=== PATIENT | female | born 1970 | race Caucasian/White ===

== ENCOUNTER → 2016-08-23 | Outpatient (CLI) | payer OTHER ==
[~2016-08-23] MED LIST: ALBUAER INH; BCTRO EXT; BUSP15TA70 PO; CIPR-255 PO; CRFUDL PO; FLV1 PO; GABA-113 PO; PANT40TA PO; RXC5 PO; THM100 PO
[2016-08-23 09:35] LABS: BASO % 0.5 %; BASO ABS # 0.04 K/uL (0-0.2); COMPLETE YES; EOS % 3.7 %; HEMATOCRIT 41.2 % (37-47); IG% 0.1 %; LYMPH ABS # 2.12 K/uL (1.2-3.4); MEAN CORPUSCULAR HEMOGLOBIN 31.8 pg (25-34); MEAN CORPUSCULAR HGB CONC 34.2 g/dl (32-36); MONO % 6.3 %; NEUT % 61.4 %; PLATELET COUNT 371 K/uL (130-400); RED BLOOD COUNT 4.43 M/uL (4.2-5.4); WHITE BLOOD COUNT 7.56 K/uL (4.8-10.8)
[2016-08-23 09:47] LABS: BLOOD UREA NITROGEN 10 mg/dl (7-18); CREATININE 0.76 mg/dl (0.60-1.20); GLUCOSE 76 mg/dl (70-99)
[2016-08-23 09:48] LABS: ALT/SGPT 29 U/L (12-78); AST/SGOT 18 U/L (15-37); BUN/CREATININE RATIO 13.7 (10-20); CALCIUM 9.3 mg/dl (8.5-10.1); CARBON DIOXIDE 30 mmol/L (21-32); CHLORIDE 102 mmol/L (98-107); POTASSIUM 4.3 mmol/L (3.5-5.1); SODIUM 139 mmol/L (136-145)
[2016-08-23 09:53] LABS: ALB/GLOB RATIO 1.2 (0.9-2); ALKALINE PHOSPHATASE 48 U/L (45-117); CHOLESTEROL 201 mg/dl (0-200); HDL CHOLESTEROL 99 mg/dl; LDL CHOLESTEROL CALCULATED 92 mg/dl; TRIGLYCERIDES 48 mg/dl (0-150); VERY LOW DENSITY LIPOPROT CALC 10 mg/dl
== END | disposition home or self-care (01) ==
LOC: C.LAB 06:33
PROVIDERS: ATTEND Nurse Practitioner Adult Health
DX: I10 Essential (primary) hypertension (principal)

== ENCOUNTER → 2016-08-26 | Outpatient (CLI) | payer OTHER ==
--- NOTE | 2016-08-26 14:09 | DIAGNOSTIC IMAGING REPORT ---
LEFT WRIST 4 VIEWS CLINICAL HISTORY: Left wrist pain. FINDINGS: 4 views of the left wrist are obtained. No prior studies are available for comparison at the time of dictation. The skeletal structures are well mineralized. No fracture is seen. The joint spaces of the wrist are well-maintained. The overlying soft tissues are within normal limits. IMPRESSION: Unremarkable radiographic assessment of the left wrist. Electronically signed by: Koko Card M.D. 08/26/2016 2:06 PM Dictated Date/Time: 08/26/2016 2:05 PM
--- NOTE | 2016-08-26 14:10 | DIAGNOSTIC IMAGING REPORT ---
LEFT HAND 3 VIEWS CLINICAL HISTORY: Left hand pain. FINDINGS: 3 views of the left hand are obtained. No prior studies are available for comparison at the time of dictation. The skeletal structures are well mineralized. No fracture is seen. The joint spaces of the hand are well-maintained. The overlying soft tissues are within normal limits. IMPRESSION: Unremarkable radiographic assessment of the left hand. Electronically signed by: Koko Card M.D. 08/26/2016 2:08 PM Dictated Date/Time: 08/26/2016 2:07 PM
== END | disposition home or self-care (01) ==
LOC: C.RAD1850 13:42
PROVIDERS: ATTEND Emergency Medicine
DX: M79.602 Pain in left arm (principal)

== ENCOUNTER → 2017-05-19 | Outpatient (CLI) | payer OTHER ==
[~2017-05-19] MED LIST changes: +THIA100T27 PO; -THM100 PO
[2017-05-19 15:27] LABS: BASO % 0.5 %; BASO ABS # 0.05 K/uL (0-0.2); EOS % 2.6 %; EOS ABS # 0.26 K/uL (0-0.5); HEMATOCRIT 39.5 % (37-47); HEMOGLOBIN 13.7 g/dL (12.0-16.0); IG# 0.06 K/uL (0.00-0.02); LYMPH % 26.9 %; MEAN CELL VOLUME 95.4 fL (80-100); MEAN CORPUSCULAR HEMOGLOBIN 33.1 pg (25-34); MEAN CORPUSCULAR HGB CONC 34.7 g/dl (32-36); MEAN PLATELET VOLUME 8.9 fL (7.4-10.4); MONO % 9.1 %; MONO ABS # 0.91 K/uL (0.11-0.59); NEUT % 60.3 %; NEUT ABS # 6.04 K/uL (1.4-6.5); PLATELET COUNT 377 K/uL (130-400); RED CELL DISTRIBUTION WIDTH CV 12.8 % (11.5-14.5); RED CELL DISTRIBUTION WIDTH SD 44.7 fL (36.4-46.3); WHITE BLOOD COUNT 10.02 K/uL (4.8-10.8)
--- NOTE | 2017-05-19 15:30 | DIAGNOSTIC IMAGING REPORT ---
CHEST 2 VIEWS ROUTINE CLINICAL HISTORY: R05 Productive [id number] cough. Dyspnea. COMPARISON STUDY: 10/07/2015 FINDINGS: The bones soft tissues and hemidiaphragms are normal. The cardiomediastinal silhouette is normal. The lungs are clear. The pulmonary vasculature is normal. IMPRESSION: Negative chest. The above report was generated using voice recognition software. It may contain grammatical, syntax or spelling errors. Electronically signed by: Norberto Kohler M.D. 05/19/2017 3:29 PM Dictated Date/Time: 05/19/2017 3:28 PM
[2017-05-19 18:00] LABS: ALBUMIN 3.6 gm/dl (3.4-5.0); ALT/SGPT 32 U/L (12-78); AST/SGOT 21 U/L (15-37); BLOOD UREA NITROGEN 19 mg/dl (7-18); CALCIUM 9.2 mg/dl (8.5-10.1); CARBON DIOXIDE 28 mmol/L (21-32); CREATININE 0.82 mg/dl (0.60-1.20); GLUCOSE 83 mg/dl (70-99); SODIUM 136 mmol/L (136-145)
[2017-05-19 18:03] LABS: ALKALINE PHOSPHATASE 79 U/L (45-117); TOTAL PROTEIN 7.9 gm/dl (6.4-8.2)
== END | disposition home or self-care (01) ==
LOC: C.RAD 14:49
PROVIDERS: ATTEND Nurse Practitioner Adult Health
DX: R05 Cough (principal)

== ENCOUNTER 2023-12-27 11:44 | Inpatient (IN) ==
--- NOTE | 2023-12-27 12:03 | Emergency Department Note ---
Impression & Plan Hypoxia ADMIT ED Provider Note HPI: History obtained from patient. The patient is a 53-year-old female with history of generalized anxiety disorder, COPD, currently smoking approximately 1 pack/day, presents the emergency department with a chief complaint of cough, wheezing, and shortness of breath. Patient states that her symptoms have been worsening over the past several days. Patient denies any chest pain. She states she is coughing up "yellow mucus". On arrival here to the ER the patient is noted to be hypoxic on room air to 87%, she is mildly tachycardic and hypertensive at 177/102. Patient is conversational on arrival however she does exhibit bilateral expiratory wheezing on auscultation. ROS: - Per HPI Differential Diagnosis: COPD exacerbation, pneumonia, viral upper respiratory infection with cough, acute bronchitis, acute coronary syndrome, amongst other potential pathologies. *Outpatient medications and allergy history reviewed. 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 Lab work shows no leukocytosis, hemoglobin is normal, platelet count is normal, D-dimer was obtained that is within normal limits. Venous blood gas shows pH slightly high at 7.49, pCO2 is normal. Lab work shows a sodium of 120, otherwise no critical findings are noted. Viral panel testing is positive for COVID-19. Chest x-ray per my interpretation does not show any evidence of focal pneumonia. Patient was given IV Solu-Medrol as well as multiple DuoNeb breathing treatments in the ER. On my reassessment she remains with wheezing and borderline oxygen saturations on 5 L nasal cannula. She is conversational at this point and otherwise does not appear to be in acute distress. Patient is in agreement for admission. I discussed her presentation with the on-call hospitalist, Dr. Hodgson, and the patient was placed for admission in stable condition. Consultants/Discussions held with other healthcare providers: -Hospitalist, Dr. Hodgson Disposition discussion held by myself with: -Patient * CRITICAL CARE TIME: ( 39 ) minutes -Stabilization of hypoxia at 81% on room air requiring supplemental oxygen for correction via nasal cannula, time spent at the bedside, interpretation of diagnostic studies, discussion with other healthcare providers and arrangement of admission. Diagnosis: 1. Hypoxia, acute 2. COVID-19 infection, acute 3. COPD exacerbation, acute 4. Hyponatremia, acute Disposition: Admission Norberto Salter DO Emergency Medicine Past Med/Surg History Problem List (Updated 12/27/23 @ 16:51 by Norberto Salter DO) Hypoxia (Acute) Acute hypoxemic respiratory failure Hyperlipidemia TRAMAINE (generalized anxiety disorder) Hypertension Endometriosis of pelvic peritoneum Anxiety Chronic neck and back pain Medical History (Updated 12/27/23 @ 16:51 by Norberto Salter DO) No significant past medical history HARRIET (acute kidney injury) Surgical History History of surgery on arm Previous back surgery History of tubal ligation Family History Father Myocardial infarction Denies family history of Colon cancer Ovarian cancer Prostate cancer Breast cancer Social History (Updated 12/02/22 @ 16:10 by HANS Ceballos) Smoking Status: Current every day smoker Tobacco Type: Cigarettes Second Hand Exposure: No; Do You Dip or Chew Tobacco: No; Hx Alcohol Use: Yes Alcohol type: beer Alcohol Intake Frequency: 4 or More x per/Week Hx Substance Use: No Visual Impairment: Partially Limited Hearing Ability: Normal marital status: Current Living Situation: Alone current occupational status: employed current occupation: Medical Records How many Children do You have: 1 Feels Safe at Home: Yes Childhood Exposure to Second-Hand Smoke: Yes Diet: regular Dental Care, Regularly: Yes Physical Activity Frequency: 3-4 Times per Week Seatbelt Use: sometimes Sunscreen Use: No Allergies Allergies Allergy/AdvReac Type Severity Reaction Status Date / Time No Known Allergies Allergy Unverified 12/27/23 13:29 Home Meds Previous Rx's Medication Instructions Recorded buspirone 15 mg tablet 15 mg PO BID #180 tabs 12/20/23 lisinopril 40 mg tablet 40 mg PO DAILY #90 tabs 12/20/23 albuterol sulfate 90 mcg/actuation 1 - 2 inh inhalation QID #18 grams 12/22/23 aerosol inhaler Results & Data (ED) Vital Signs Vital Signs - 24 hr 12/27/23 11:45 12/27/23 12:00 12/27/23 12:01 Temperature 36.7 C Temperature Source Temporal Artery Scan Pulse Rate 108 H Pulse Rate [Apical] Respiratory Rate 20 Respiratory Effort / Characteristics Non-Labored Spontaneous Respiratory Depth Normal Respiratory Pattern Regular Blood Pressure 177/102 H Blood Pressure [Left Arm] Blood Pressure Mean 127 Blood Pressure Mean [Left Arm] Blood Pressure Position Sitting Blood Pressure Position [Left Arm] Pulse Oximetry 87 L 81 L 94 Oxygen Delivery Method Room Air Room Air Nasal Cannula Oxygen Flow Rate 4 Sepsis Recent Fever Within 48 Hours No Sepsis New/Unexplained Change in Mental Status No Sepsis Action Taken by Nursing No Action Required 12/27/23 12:05 12/27/23 12:14 12/27/23 12:18 Temperature Temperature Source Pulse Rate 94 H 111 H Pulse Rate [Apical] 99 H Respiratory Rate 17 23 Respiratory Effort / Characteristics Respiratory Depth Respiratory Pattern Blood Pressure Blood Pressure [Left Arm] 158/104 H Blood Pressure Mean Blood Pressure Mean [Left Arm] 122 Blood Pressure Position Blood Pressure Position [Left Arm] Semi-fowlers Pulse Oximetry 93 97 Oxygen Delivery Method Nasal Cannula Oxygen Flow Rate 3 Sepsis Recent Fever Within 48 Hours Sepsis New/Unexplained Change in Mental Status Sepsis Action Taken by Nursing 12/27/23 13:53 12/27/23 16:00 Temperature Temperature Source Pulse Rate Pulse Rate [Apical] 98 H 95 H Respiratory Rate 20 22 Respiratory Effort / Characteristics Non-Labored Spontaneous Respiratory Depth Normal Respiratory Pattern Blood Pressure Blood Pressure [Left Arm] 164/102 H 143/101 H Blood Pressure Mean Blood Pressure Mean [Left Arm] 122 115 Blood Pressure Position Blood Pressure Position [Left Arm] Pulse Oximetry 94 98 Oxygen Delivery Method Oxymask Room Air Oxygen Flow Rate 6 Sepsis Recent Fever Within 48 Hours Sepsis New/Unexplained Change in Mental Status Sepsis Action Taken by Nursing Laboratory Data 12/27/23 12:03 12/27/23 15:08 Lab Results 12/27/23 12/27/23 12/27/23 Range/Units 12:03 12:17 15:08 WBC 8.81 (4.8-10.8) K/ul RBC 4.23 (4.20-5.40) M/uL Hgb 13.8 (12.0-16.0) g/dl Hct 37.4 (37.0-47.0) % MCV 88.4 (80.0-100.0) fL MCH 32.6 (25.0-34.0) pg MCHC 36.9 H (32.0-36.0) g/dL RDW Std Deviation 38.8 (36.4-46.3) fL RDW Coeff of Yulia 12.0 (11.5-14.5) % Plt Count 308 (130-400) K/uL MPV 8.6 L (9.4-12.4) fL Immature Gran % (Auto) 0.7 % Neut % (Auto) 72.9 % Lymph % (Auto) 10.8 % Brown % (Auto) 15.0 % Eos % (Auto) 0.1 % Baso % (Auto) 0.5 % Neut # (Auto) 6.43 (1.40-6.50) K/uL Lymph # (Auto) 0.95 L (1.20-3.40) K/uL Brown # (Auto) 1.32 H (0.11-0.59) K/uL Eos # (Auto) 0.01 (0.00-0.50) K/uL Baso # (Auto) 0.04 (0.00-0.20) K/uL Immature Gran # (Auto) 0.06 (0.01-0.20) K/uL PT 10.9 (9.0-12.0) Seconds INR 1.0 (0.9-1.1) D-Dimer 460 (0-500) ug/L FEU VBG pH 7.49 H (7.36-7.41) VBG pCO2 41 (38-50) mmHg VBG pO2 55 mmHg VBG HCO3 31 mmol/L VBG O2 Saturation 89.8 % VBG Base Excess 7.2 mEq/L Sodium 120 L 125 L (136-145) mmol/L Potassium 3.7 3.7 (3.5-5.1) mmol/L Chloride 80 L 84 L (98-107) mmol/L Carbon Dioxide 30 31 (21-32) mmol/L Anion Gap 10 10 (3-11) BUN 6 5 L (6-23) mg/dl Creatinine 0.56 L 0.48 L (0.6-1.2) mg/dl Est Cr Clr Drug Dosing 92.7 108.1 ml/min Est GFR ( Amer) 125.1 131.6 ml/min Est GFR (Non-Af Amer) 108.0 113.6 ml/min BUN/Creatinine Ratio 10.7 10.4 (10-20) Glucose 132 H 156 H (70-99(Fasting)) mg/dl Calcium 9.2 9.2 (8.6-10.3) mg/dl Total Bilirubin 0.5 (0.2-1.0) mg/dl AST 42 H (13-39) U/L ALT 24 (7-52) U/L Alkaline Phosphatase 68 (34-104) U/L Troponin I High Sens 8.7 6.8 (0-14) pg/ml Total Protein 7.7 (6.0-8.3) gm/dl Albumin 4.3 (3.4-5.0) gm/dl Globulin 3.4 (2.5-4.0) gm/dl Albumin/Globulin Ratio 1.3 (0.9-2) Lipase 10 L (11-82) U/L SARS-CoV-2 (PCR) POSITIVE (Negative) Influenza Type A (PCR) Negative (Neg) Influenza Type B (PCR) Negative (Neg) RSV (RT-PCR) Negative (Neg) Administered Medications Acetaminophen (Acetaminophen 325 Mg Tab) 650 mg PO Q4H PRN PRN Reason: pain/fever Stop: 01/26/24 13:33 Last Admin: 12/27/23 16:19 Dose: 650 mg Documented By: MITESH Guaifenesin/Dextromethorphan (Guaifenesin/Dextrom Syrup 200mg/20mg 10ml Udc) 10 ml PO Q6H PRN PRN Reason: Cough Stop: 01/26/24 13:46 Last Admin: 12/27/23 15:19 Dose: 10 ml Documented By: MITESH Sodium Chloride (Nss) 1,000 mls @ 60 mls/hr IV .[id number] DEJA Stop: 01/26/24 13:44 Last Admin: 12/27/23 13:49 Dose: 60 mls/hr Documented By: HS Discontinued Medications Albuterol (Albut/Ipratrop 3mg/0.5mg Neb 3 Ml Vial) 3 ml NEB NOW STA; Protocol Stop: 12/27/23 12:02 Last Admin: 12/27/23 12:10 Dose: 3 ml Documented By: MMF Albuterol (Albut/Ipratrop 3mg/0.5mg Neb 3 Ml Vial) 3 ml NEB NOW STA; Protocol Stop: 12/27/23 12:40 Last Admin: 12/27/23 12:56 Dose: 3 ml Documented By: MMF Albuterol (Albut/Ipratrop 3mg/0.5mg Neb 3 Ml Vial) 3 ml NEB NOW STA; Protocol Stop: 12/27/23 13:24 Last Admin: 12/27/23 13:24 Dose: 3 ml Documented By: GUADALUPE Sodium Chloride (Nss) 500 mls @ 999 mls/hr IV .Q31M STA Stop: 12/27/23 12:21 Last Infusion: 12/27/23 12:58 Dose: Infused Documented By: Admin: 12/27/23 12:10 Dose: 999 mls/hr Documented By: MMF Remdesivir 200 mg/ Sodium (Chloride) 250 mls @ 125 mls/hr IV ONE STA; Protocol Stop: 12/27/23 16:06 Last Admin: 12/27/23 15:19 Dose: 125 mls/hr Documented By: MITESH Azithromycin 500 mg/ Dextrose 255 mls @ 125 mls/hr IV Q24H DEJA Stop: 12/27/23 16:03 Last Admin: 12/27/23 15:19 Dose: 125 mls/hr Documented By: MITESH Ceftriaxone Sodium (Rocephin) 1,000 mg in 50 mls @ 100 mls/hr IV Q24H DEJA Stop: 12/27/23 16:00 Last Infusion: 12/27/23 15:24 Dose: Infused Documented By: Admin: 12/27/23 14:28 Dose: 100 mls/hr Documented By: MMF Methylprednisolone (Methylprednisolone 125 Mg/2 Ml Vial) 125 mg IV NOW STA Stop: 12/27/23 12:02 Last Admin: 12/27/23 12:12 Dose: 125 mg Documented By: MMF Imaging Data Radiologist's Impression: Chest X-Ray 12/27/23 11:51 XR chest 1V portable CLINICAL HISTORY: Chest pain, cough TECHNIQUE: Single frontal radiograph of the chest was obtained. Comparison: Comparison is made to chest radiograph 10/07/2015 FINDINGS: No lines and tubes are seen. The cardiomediastinal silhouette is normal. Peribronchial thickening is seen. No evidence of pleural effusion or pneumothorax. IMPRESSION: Peribronchial thickening is seen compatible with infectious/inflammatory airways disease or viral pneumonia. No nya consolidation is seen. ACT 112: Negative or not required by law. Electronically signed by: Omar Jacome M.D. 12/27/2023 12:24 PM Discharge Plan Visit Data Chief Complaint: Illness Stated Complaint: BREATHING ISSUES, COUGHING UP PHLEGM, DEHYDRATED ED Provider: Norberto Salter Discharge Problem: Hypoxia Forms Stand Alone Forms: [facility] Prescriptions Prescriptions: No Action lisinopril 40 mg tablet 40 mg PO DAILY Qty: 90 3RF buspirone 15 mg tablet 15 mg PO BID Qty: 180 3RF albuterol sulfate 90 mcg/actuation HFA aerosol inhaler 1 - 2 inh inhalation QID Qty: 18 3RF Referrals Referrals: Octavio Hummel DO [Primary Care Provider] -
[2023-12-27] MEDS: ALBUT/IPRATROP 3MG/0.5MG NEB 3 ML VIAL NEB STA ×3 (12:10→13:24)
[2023-12-27] MEDS: SODIUM CHLORIDE 0.9% 500 ML IV STA (12:10)
[2023-12-27] MEDS: methylPREDNISolone 125 MG/2 ML VIAL IV STA (12:12)
[2023-12-27 12:25] LABS: Basophils # (auto) 0.04 K/uL (0.00-0.20); Basophils % (auto) 0.5 %; Eosinophils # (auto) 0.01 K/uL (0.00-0.50); Eosinophils % (auto) 0.1 %; Hematocrit (blood only) 37.4 % (37.0-47.0); Hemoglobin 13.8 g/dl (12.0-16.0); Immature Granulocytes # (auto) 0.06 K/uL (0.01-0.20); Immature Granulocytes % (auto) 0.7 %; Lymphocytes # (auto) 0.95 K/uL (1.20-3.40); Lymphocytes % (auto) 10.8 %; Mean Corpuscular Hemoglobin 32.6 pg (25.0-34.0); Mean Corpuscular Hgb Conc 36.9 g/dL (32.0-36.0); Mean Corpuscular Volume 88.4 fL (80.0-100.0); Mean Platelet Volume 8.6 fL (9.4-12.4); Monocytes # (auto) 1.32 K/uL (0.11-0.59); Neutrophils # (auto) 6.43 K/uL (1.40-6.50); Neutrophils % (auto) 72.9 %; Platelet Count 308 K/uL (130-400); RDW Standard Deviation 38.8 fL (36.4-46.3); Red Blood Count 4.23 M/uL (4.20-5.40); White Blood Count 8.81 K/ul (4.8-10.8)
--- NOTE | 2023-12-27 12:27 | XRay Report ---
XR chest 1V portable CLINICAL HISTORY: Chest pain, cough TECHNIQUE: Single frontal radiograph of the chest was obtained. Comparison: Comparison is made to chest radiograph 10/07/2015 FINDINGS: No lines and tubes are seen. The cardiomediastinal silhouette is normal. Peribronchial thickening is seen. No evidence of pleural effusion or pneumothorax. IMPRESSION: Peribronchial thickening is seen compatible with infectious/inflammatory airways disease or viral pne umonia. No nya consolidation is seen. ACT 112: Negative or not required by law. Electronically signed by: Omar Jacome M.D. 12/27/2023 12:24 PM
[2023-12-27 12:30] LABS: Base Excess VBG 7.2 mEq/L; HCO3 VBG 31 mmol/L; Oxygen Saturation VBG 89.8 %; PCO2 VBG 41 mmHg (38-50); PO2 VBG 55 mmHg; pH VBG 7.49 (7.36-7.41)
[2023-12-27 12:38] LABS: Albumin Globulin Ratio 1.3 (0.9-2); Albumin Level 4.3 gm/dl (3.4-5.0); BUN Creatinine Ratio 10.7 (10-20); Bilirubin,Total 0.5 mg/dl (0.2-1.0); Calcium 9.2 mg/dl (8.6-10.3); Creatinine Clr Calc Pharmacy 92.7 ml/min; Est GFR (African American) 125.1 ml/min; Globulin 3.4 gm/dl (2.5-4.0); Potassium 3.7 mmol/L (3.5-5.1); Total Protein 7.7 gm/dl (6.0-8.3)
[2023-12-27 12:44] LABS: Troponin I High Sensitivity 8.7 pg/ml (0-14)
[2023-12-27 12:47] LABS: Prothrombin Time 10.9 Seconds (9.0-12.0)
--- NOTE | 2023-12-27 12:57 | Electrocardiogram Report ---
Test Reason : Blood Pressure : */* mmHG Vent. Rate : 103 BPM Atrial Rate : 103 BPM P-R Int : 120 ms QRS Dur : 82 ms QT Int : 338 ms P-R-T Axes : 73 -8 71 degrees QTcB Int : 442 ms Sinus tachycardia Poor R wave progression, consider anterior [place] vs. lead placement vs. LVH Abnormal ECG When compared with ECG of 07-Oct-2015 18:49, No significant change was found Confirmed by Murray Chacon ([id number]) on 12/27/2023 12:57:07 PM Referred By: REFERRED SELF Confirmed By: Murray Chacon
[2023-12-27] MEDS ORDERED: ALBUTEROL 0.083% NEBU SOLN 3 ML VIAL NEB PRN (13:32)
[2023-12-27] MEDS: SODIUM CHLORIDE 0.9% 1,000 ML IV SCH (13:49)
[2023-12-27 14:01] LABS: Influenza A virus by PCR Negative (Neg); Influenza B virus by PCR Negative (Neg); RSV by PCR Negative (Neg); SARS CoV2 RNA(COVID-19) Ceph POSITIVE (Negative)
[2023-12-27 14:02] LABS: D Dimer 460 ug/L FEU (0-500)
--- NOTE | 2023-12-27 14:03 | History & Physical Report ---
Date of Service December 27, 2023 Assessment & Plan (1) Acute hypoxemic respiratory failure: Plan: Assessment: 1. Acute hypoxemic respiratory failure. Multifactorial secondary to the below. 2. Acute COVID-19 infection. This is just resulted is positive during the time of this dictation. Due to the fact the patient has hypoxemia and she is symptomatic we will do IV remdesivir. Continue nebulizer treatments. And continue steroid therapy. 3. Possible pneumonia on chest x-ray. This could be a superinfection/bacterial infection. We will treat with Rocephin and azithromycin. We have ordered a sputum culture. 4. Hyponatremia. The patient admits to drinking 32 to 48 ounces of water per day. In addition she drinks 3-12 beers per day. However she is only had a half a beer since Tuesday per the patient. We will fluid restrict the patient. In normal saline gently. Due to 4-hour BMPs to bring the sodium up slowly. 5. COPD with acute exacerbation. Pulmonary toilet as above. 6. Daily alcohol use. Only a half a beer since Tuesday. Withdrawal protocol ordered to monitor for withdrawal. 7. Daily tobacco abuse in the form of smoking cigarettes one half to a pack of cigarettes per day. 8. History of anxiety. 9. History of hypertension continue home meds and monitor. 10. Rule out pulmonary embolism. D-dimer is pending at the time of this dictation. If positive we will do a CTA of the chest. Plan: As discussed above. Please refer to orders for further planning. History of Present Illness Chief Complaint: Shortness of breath, cough. Primary Care Provider: Octavio Hummel DO This is a 53-year-old female who has a approximately 4 to 5-day history of increasing cough and shortness of breath. She has had productive sputum that is been [place] to yellow in color. She denies having a fever at home. She took a home COVID test over the last 2 to 3 days which was negative. Due to her increasing shortness of breath and cough he presented to the ER for further evaluate treatment. In the emergency department she is found to be hypoxic as low as 89% on room air. She had a chest x-ray concerning for possible evolving pneumonia-possible viral pneumonia. Laboratory studies including a CBC were unremarkable. However electrolytes showed a sodium level of 120. The patient received multiple nebulizer treatments in the ER. She was she is not an 25 mg of IV Solu-Medrol. She received a bolus of normal saline. We are called admit the patient for further evaluation and treatment. We have ordered a stat D-dimer given the hypoxemia. This is pending. COVID test was ordered but not collected or resulted prior to us being requested for admission. This is still pending. Event admit the patient. Will start her on Rocephin and azithromycin as well as steroids and nebulizer/pulmonary toilet. Started on gentle saline. Do BMP every 4 hours. Await COVID testing and D-dimer. If positive we will make further recommendations. We have also ordered a sputum culture. Allergies Allergy/AdvReac Type Severity Reaction Status Date / Time No Known Allergies Allergy Unverified 12/27/23 13:29 Home Medications Medication Instructions Recorded Confirmed Type buspirone 15 mg tablet 15 mg PO BID #180 tabs 12/20/23 12/27/23 Rx lisinopril 40 mg tablet 40 mg PO DAILY #90 tabs 12/20/23 12/27/23 Rx albuterol sulfate 90 mcg/actuation 1 - 2 inh inhalation QID #18 grams 12/22/23 12/27/23 Rx aerosol inhaler Past Med/Surg History Problem List (Updated 12/27/23 @ 14:09 by Braden Hodgson, PhD, DO) Acute hypoxemic respiratory failure Hyperlipidemia TRAMAINE (generalized anxiety disorder) Hypertension Endometriosis of pelvic peritoneum Anxiety Chronic neck and back pain Medical History (Updated 12/27/23 @ 14:09 by Braden Hodgson, PhD, DO) No significant past medical history HARRIET (acute kidney injury) Surgical History History of surgery on arm Previous back surgery History of tubal ligation Family History Father Myocardial infarction Denies family history of Colon cancer Ovarian cancer Prostate cancer Breast cancer Social History (Updated 12/02/22 @ 16:10 by HANS Ceballos) Smoking Status: Current every day smoker Tobacco Type: Cigarettes Second Hand Exposure: No; Do You Dip or Chew Tobacco: No; Hx Alcohol Use: Yes Alcohol type: beer Alcohol Intake Frequency: 4 or More x per/Week Hx Substance Use: No Visual Impairment: Partially Limited Hearing Ability: Normal marital status: Current Living Situation: Alone current occupational 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 Physical Exam Physical Exam: In General: In general this is a 53-year-old female who is alert and oriented x 3 at time my exam she is in moderate amount of distress with her coughing at this time she is having a "coughing spell". She is tachypneic at approximately 32 breaths/min. She does have conversational dyspnea approximately 4 to 5 hours at a time. HEENT: Normocephalic atraumatic pupils are equal round and reactive to light bilaterally. No scleral icterus no conjunctival injection external auditory canals are patent septum is in the midline nose is without discharge oral mucosa is pink and moist without lesion. NECK: Supple no rigidity no lymphadenopathy no thyromegaly no carotid bruits no JVD no masses. HEART: Regular rate and rhythm I do not appreciate any ectopy or rub. No murmur. LUNGS: Coarse bilaterally with severe expiratory wheezes and occasional inspira tory wheezes. Globally diminished in the bases. Not moving a lot of air. ABDOMEN: Soft nontender, no rebound, no peritoneal signs, positive bowel sounds, no appreciable organomegaly. EXTREMITIES: Intact, no peripheral cyanosis, clubbing or edema. Strength is 5 out of 5 in extremities x4 NEUROLOGICAL: Cranial nerves II through XII are grossly intact with no focal deficit elicited upon examination. Results & Data Results & Data Vital Signs (Past 12 Hours) Vital Signs Temp Pulse Pulse Resp BP BP Pulse Ox 12/27/23 13:53 98 H 20 164/102 H 94 12/27/23 12:18 99 H 23 158/104 H 97 12/27/23 12:14 111 H 12/27/23 12:05 94 H 17 93 12/27/23 12:01 94 12/27/23 12:00 81 L 12/27/23 11:45 36.7 C 108 H 20 177/102 H 87 L O2 Del Method O2 Flow Rate 12/27/23 13:53 Oxymask 6 12/27/23 12:18 12/27/23 12:14 12/27/23 12:05 Nasal Cannula 3 12/27/23 12:01 Nasal Cannula 4 12/27/23 12:00 Room Air 12/27/23 11:45 Room Air Code Status & VTE Plan Code Status Full code. I personally discussed with patient. VTE Prophylaxis Plan VTE Prophylaxis will be ordered: Yes PG Care Time/CCT Total # of Minutes Spent Total Time Spent with Patient: Total time spent is greater than 50% in coordination of care (as documented) at patient's floor/unit and/or counseling patient: Coding Level of Care Code 84334 INT INP/OBS CARE 375MIN Diagnoses Acute hypoxemic respiratory failure J96.01
[2023-12-27] MEDS: cefTRIAXone SODIUM 1,000 MG/50 ML BAG IV SCH (14:28)
[2023-12-27] MEDS: REMDESIVIR 200 MG in SODIUM CHLORIDE 0.9% 210 ML IV STA (15:19)
[2023-12-27] MEDS: AZITHROMYCIN 500 MG in DEXTROSE 5% 250 ML IV SCH (15:19)
[2023-12-27] MEDS: guaiFENesin/DEXTROM SYRUP 200MG/20MG 10ML UDC PO PRN (15:19)
[2023-12-27 15:52] LABS: BUN Creatinine Ratio 10.4 (10-20); Calcium 9.2 mg/dl (8.6-10.3); Creatinine Clr Calc Pharmacy 108.1 ml/min; Est GFR (African American) 131.6 ml/min; Est GFR (Non-African American) 113.6 ml/min; Potassium 3.7 mmol/L (3.5-5.1)
[2023-12-27] MEDS: ACETAMINOPHEN 325 MG TAB PO PRN (16:19)
[2023-12-27] MEDS: ALBUT/IPRATROP 3MG/0.5MG NEB 3 ML VIAL NEB SCH (19:08)
[2023-12-27] MEDS: methylPREDNISolone 40 MG in SYRINGE 0 ML IV SCH (19:34)
[2023-12-27] MEDS: NICOTINE 14 MG/24 HR PATCH TD SCH (19:34)
[2023-12-27 21:11] LABS: BUN Creatinine Ratio 9.3 (10-20); Calcium 9.2 mg/dl (8.6-10.3); Est GFR (African American) 126.6 ml/min; Est GFR (Non-African American) 109.3 ml/min
[2023-12-27] MEDS: busPIRone 15 MG TAB PO SCH (21:25)
[2023-12-27] MEDS: hydrALAZINE HCL 20 MG/ML VIAL IV PRN (21:25)
[2023-12-27] MEDS: BENZONATATE 100 MG CAPSULE PO PRN (21:26)
[2023-12-28 07:17] LABS: Basophils # (auto) 0.02 K/uL (0.00-0.20); Basophils % (auto) 0.2 %; Hematocrit (blood only) 39.4 % (37.0-47.0); Hemoglobin 14.3 g/dl (12.0-16.0); Immature Granulocytes # (auto) 0.11 K/uL (0.01-0.20); Immature Granulocytes % (auto) 1.3 %; Lymphocytes # (auto) 0.68 K/uL (1.20-3.40); Lymphocytes % (auto) 7.8 %; Mean Corpuscular Hemoglobin 32.7 pg (25.0-34.0); Mean Corpuscular Hgb Conc 36.3 g/dL (32.0-36.0); Mean Corpuscular Volume 90.2 fL (80.0-100.0); Mean Platelet Volume 8.7 fL (9.4-12.4); Monocytes # (auto) 0.96 K/uL (0.11-0.59); Neutrophils # (auto) 6.94 K/uL (1.40-6.50); Neutrophils % (auto) 79.7 %; Platelet Count 348 K/uL (130-400); RDW Coefficient of Variation 12.2 % (11.5-14.5); Red Blood Count 4.37 M/uL (4.20-5.40); White Blood Count 8.71 K/ul (4.8-10.8)
[2023-12-28 07:31] LABS: Albumin Globulin Ratio 1.3 (0.9-2); Albumin Level 4.1 gm/dl (3.4-5.0); BUN Creatinine Ratio 15.2 (10-20); Bilirubin,Total 0.3 mg/dl (0.2-1.0); Calcium 9.1 mg/dl (8.6-10.3); Creatinine Clr Calc Pharmacy 110.1 ml/min; Est GFR (African American) 133.5 ml/min; Est GFR (Non-African American) 115.2 ml/min; Globulin 3.2 gm/dl (2.5-4.0); Magnesium 1.9 mg/dl (1.7-2.4); Total Protein 7.3 gm/dl (6.0-8.3)
[2023-12-28 07:45] LABS: Thyroid Stimulating Hormone 0.227 uIu/ml (0.300-4.500)
[2023-12-28 08:22] LABS: T4 Free Thyroxine 1.25 ng/dl (0.61-1.60)
[2023-12-28] MEDS: FOLIC ACID 1 MG TAB PO SCH (09:00)
[2023-12-28] MEDS: lisinopril 40 MG TAB PO SCH (09:01)
[2023-12-28] MEDS: THIAMINE HCL 100 MG in SODIUM CHLORIDE 0.9% 50 ML IV SCH (09:02)
[2023-12-28] MEDS: ENOXAPARIN INJ 30 MG/0.3 ML SYR SQ SCH (13:18)
[2023-12-28] MEDS: REMDESIVIR 100 MG in SODIUM CHLORIDE 0.9% 230 ML IV SCH (13:19)
[2023-12-28] MEDS: cefTRIAXone SODIUM 1,000 MG/50 ML BAG IV SCH (14:32)
[2023-12-28] MEDS: AZITHROMYCIN 500 MG in DEXTROSE 5% 250 ML IV SCH (15:28)
--- NOTE | 2023-12-28 16:36 | Hospitalist Progress Note ---
Date of Service December 28, 2023 Assessment & Plan (1) COVID-19: Plan: Presents with respiratory symptoms to include productive cough and shortness of breath, weakness, hypoxia. Chest x-ray consistent with peribronchial thickening and could be viral pneumonia Positive COVID-19. D-dimer negative, VBG normal. Likely has underlying COPD but has not had PFTs or been prescribed inhalers in the past. Is a current smoker With acute respiratory failure with hypoxia requiring 3 L nasal cannula Continue Remdesivir Continue IV steroids Add flutter valve and incentive spirometer With persistent cough-change Tessalon Perles to 200 mg p.o. 3 times daily scheduled and continue Robitussin DM as needed Continue supportive care (2) Acute hypoxemic respiratory failure: Plan: With possible pneumonia on chest x-ray. This could be a superinfection/bacterial infection Continue to treat with Rocephin and azithromycin Collect sputum culture Follow chest x-ray to resolution Continue supplemental O2 to keep pulse ox greater than 90% (3) Hyponatremia: Plan: Sodium 120 on admission and now up to 132 after receiving normal saline and f luid restricting It is not clear if this is acute or chronic hyponatremia. Likely related to beer Potomania Continue fluid restriction Follow BMP (4) Current smoker: Plan: Counseled on smoking cessation Nicotine patch transdermal ordered (5) Alcohol use disorder: Plan: Patient admits to drinking anywhere from 3-12 beers per day but says her last drink was on Saturday 12/23 and that she has no history of alcohol withdrawal She is mildly tachycardic here but that could also be from bronchodilators and steroid therapy in the setting of hypoxia and illness With hyponatremia as noted above which is improving Recommend cutting down on alcohol use or abstinence Does not seem likely that she will have withdrawal at this point as she is already 5 days out from her last drink Continue thiamine but changed to p.o., continue folic acid (6) Hypertension: Plan: Blood pressures are mildly elevated likely secondary to steroid therapy Continue home lisinopril Plan Hyperlipidemia-it appears she is no longer on [id number] with PCP Generalized anxiety disorder-continue BuSpar 15 Mg p.o. twice daily DVT prophylaxis-add Lovenox SQ Disposition-continued stay on telemetry Admission and Anticipated Discharge Date Admission Date: December 27, 2023 Subjective Patient has a very hoarse voice and feels dry in the throat. She is having a significant cough. Feels better with the oxygen on and overall feels a little bit better than on admission. She is coughing up sputum. She feels less short of breath with movement. Her appetite is good. Did have a headache but it is improving. No nausea or vomiting, no diarrhea. Telemetry with normal sinus rhythm and rates in the 80s to 120s Physical Exam Constitutional: WD/WN, vitals as above Neck: trachea midline, no thyromegaly Respiratory: normal respiratory effort; no cough Auscultation: + rhonchi (Upper right and left lung marie) and + wheezes (Diffuse); no crackles Cardiovascular: RRR, no murmur, no edema Chest (Breasts): Chest: normal inspection of chest Gastrointestinal (Abdomen): normal bowel sounds, soft, nontender, no hepatosplenomegaly Musculoskeletal: Extremities: extremities normal to inspection; no cyanosis and no clubbing Skin: no rashes, warm and dry Neurologic: moves all extremities and awake; no focal motor deficits Psychiatric: A+Ox3, euthymic affect Lymphatic: no lymphedema Results & Data Results & Data Vital Signs (Past 12 Hours) Vital Signs Temp Pulse Pulse Resp BP Pulse Ox O2 Del Method 12/28/23 16:11 36.6 C 97 H 18 147/93 H 91 Nasal Cannula 12/28/23 15:58 103 H 12/28/23 14:13 Nasal Cannula 12/28/23 13:14 106 H 16 93 Nasal Cannula 12/28/23 11:34 37.0 C 105 H 18 133/83 93 Nasal Cannula 12/28/23 08:00 117 H 12/28/23 06:55 110 H 18 92 Nasal Cannula 12/28/23 04:55 115 H 20 93 Nasal Cannula O2 Flow Rate 12/28/23 16:11 3 12/28/23 15:58 12/28/23 14:13 3 12/28/23 13:14 3 12/28/23 11:34 3 12/28/23 08:00 12/28/23 06:55 3 12/28/23 04:55 3 Laboratory Results CBC, CMP, VBG, D-dimer, TSH, troponin, magnesium reviewed PG Care Time/CCT Total # of Minutes Spent Total Time Spent with Patient: Total time spent is greater than 50% in coordination of care (as documented) at patient's floor/unit and/or counseling patient: Coding Level of Care Code 38893 SUB INP/OBS CARE MIN Diagnoses COVID-19 U07.1 Acute hypoxemic respiratory failure J96.01 Hyponatremia E87.1 Current smoker F17.200 Alcohol use disorder F10.90 Hypertension I10
[2023-12-28] MEDS: BENZONATATE 100 MG CAPSULE PO SCH (17:22)
[2023-12-29 08:09] LABS: Hematocrit (blood only) 39.1 % (37.0-47.0); Mean Corpuscular Hemoglobin 31.6 pg (25.0-34.0); Mean Corpuscular Hgb Conc 33.2 g/dL (32.0-36.0); Mean Corpuscular Volume 95.1 fL (80.0-100.0); Mean Platelet Volume 8.8 fL (9.4-12.4); Platelet Count 331 K/uL (130-400); RDW Standard Deviation 45.8 fL (36.4-46.3); Red Blood Count 4.11 M/uL (4.20-5.40); White Blood Count 11.06 K/ul (4.8-10.8)
[2023-12-29 08:10] LABS: Basophils # (auto) 0.02 K/uL (0.00-0.20); Basophils % (auto) 0.2 %; Immature Granulocytes # (auto) 0.14 K/uL (0.01-0.20); Immature Granulocytes % (auto) 1.3 %; Lymphocytes # (auto) 1.26 K/uL (1.20-3.40); Lymphocytes % (auto) 11.4 %; Monocytes # (auto) 0.65 K/uL (0.11-0.59); Monocytes % (auto) 5.9 %; Neutrophils # (auto) 8.99 K/uL (1.40-6.50); Neutrophils % (auto) 81.2 %
[2023-12-29 08:25] LABS: Albumin Globulin Ratio 1.4 (0.9-2); Albumin Level 3.8 gm/dl (3.4-5.0); BUN Creatinine Ratio 20.4 (10-20); Bilirubin,Total 0.3 mg/dl (0.2-1.0); C Reactive Protein 3.04 mg/dl (0-0.5); Calcium 9.1 mg/dl (8.6-10.3); Creatinine Clr Calc Pharmacy 104.6 ml/min; Est GFR (African American) 130.7 ml/min; Est GFR (Non-African American) 112.8 ml/min; Globulin 2.8 gm/dl (2.5-4.0); Magnesium 1.9 mg/dl (1.7-2.4); Potassium 4.6 mmol/L (3.5-5.1); Total Protein 6.6 gm/dl (6.0-8.3)
[2023-12-29] MEDS: THIAMINE HCL 100 MG TAB PO SCH (09:11)
--- NOTE | 2023-12-29 17:12 | Hospitalist Progress Note ---
Date of Service December 29, 2023 Assessment & Plan (1) COVID-19: Plan: Presents with respiratory symptoms to include productive cough and shortness of breath, weakness, hypoxia. Chest x-ray consistent with peribronchial thickening and could be viral pneumonia Positive COVID-19. D-dimer negative, VBG normal. Likely has underlying COPD but has not had PFTs or been prescribed inhalers in the past. Is a current smoker With acute respiratory failure with hypoxia requiring 3 L nasal cannula-now weaned to room air later in day on 12/28. Cough improving, wheezing improved dc Remdesivir-she received 3 doses but IV was too painful and will not be replaced at pt's request Continue steroids but convert to dexamethasone 6mg po daily to finish out a 10 day course Continue flutter valve and incentive spirometer Continue Tessalon Perles 200 mg p.o. 3 times daily scheduled and continue Robitussin DM as needed Continue supportive care (2) Acute hypoxemic respiratory failure: Plan: With possible pneumonia on chest x-ray. This could be a superinfection/bacterial infection Now weaned off O2 Change Rocephin and azithromycin IV to po cefdinir and po azithro to finsih out 7 days and 5 days, respectively F/u sputum culture-moderate normal mikayla thus far Follow chest x-ray to resolution in 4 weeks as outpt Continue supplemental O2 as needed to keep pulse ox greater than 90% Check 2 step walk test prior to discharge Recommend PFTs as outpt and maintenance inhaler-will prescribe Spiriva on discharge (3) Hyponatremia: Plan: Sodium 120 on admission and now up to 135 after receiving normal saline and fluid restricting It is not clear if this is acute or chronic hyponatremia. Likely related to beer Potomania Continue fluid restriction but can loosen to 1800mL as she tends to drink a lot of fluid Encouraged EtOH cessation (4) Current smoker: Plan: Counseled on smoking cessation Nicotine patch transdermal ordered (5) Alcohol use disorder: Plan: Patient admits to drinking anywhere from 3-12 beers per day but says her last drink was on Saturday 12/23 and that she has no history of alcohol withdrawal She was mildly tachycardic here but that could also be from bronchodilators and steroid therapy in the setting of hypoxia and illness-now resolved With hyponatremia as noted above which is now resolved Recommend cutting down on alcohol use or abstinence Does not seem likely that she will have withdrawal at this point as she is already 5 days out from her last drink Continue thiamine and folic acid (6) Hypertension: Plan: Blood pressures are mildly elevated likely secondary to steroid therapy Continue home lisinopril IV hydralazine prn Plan Hyperlipidemia-it appears she is no longer on [id number] with PCP Generalized anxiety disorder-continue BuSpar 15 Mg p.o. twice daily, add lorazepam 1mg hs for insomnia while in hospital DVT prophylaxis-Lovenox SQ Disposition-continued stay but can downgrade to med/surg and likely dc to home tomorrow Admission and Anticipated Discharge Date Admission Date: December 27, 2023 Subjective Pt feeling better but was not able to sleep at all last night. She is still coughing but not as much. Is eating and drinking, moved her bowels. Remains on 3LNC but I weaned her down to room air in the room and she stayed at 94-95%. She c/o severe pain at her IV site Tele with NSR, rates 70-80s Physical Exam Constitutional: WD/WN, vitals as above Neck: trachea midline, no thyromegaly Respiratory: normal respiratory effort; no cough Auscultation: + wheezes (Diffuse but improved from previous); no crackles and no rhonchi Cardiovascular: RRR, no murmur, no edema Chest (Breasts): Chest: normal inspection of chest Gastrointestinal (Abdomen): normal bowel sounds, soft, nontender, no hepatosplenomegaly Musculoskeletal: Extremities: extremities normal to inspection; no cyanosis and no clubbing no swelling or erythema around IV sites but exquisitely +TTP Skin: no rashes, warm and dry Neurologic: moves all extremities and awake; no focal motor deficits Psychiatric: A+Ox3, euthymic affect Lymphatic: no lymphedema Results & Data Results & Data Vital Signs (Past 12 Hours) Vital Signs Temp Pulse Pulse Resp BP Pulse Ox O2 Del Method 12/29/23 16:37 Nasal Cannula 12/29/23 16:05 36.9 C 87 18 167/97 H 95 Nasal Cannula 12/29/23 15:32 97 H 12/29/23 12:12 78 18 94 Nasal Cannula 12/29/23 08:23 74 12/29/23 07:48 37.0 C 80 20 163/90 H 97 Nasal Cannula 12/29/23 06:54 78 18 94 Nasal Cannula O2 Flow Rate 12/29/23 16:37 3 12/29/23 16:05 3 12/29/23 15:32 12/29/23 12:12 3 12/29/23 08:23 12/29/23 07:48 3 12/29/23 06:54 3 Laboratory Results CBC, BMP, CRP, and sputum cx reviewed PG Care Time/CCT Total # of Minutes Spent Total Time Spent with Patient: Total time spent is greater than 50% in coordination of care (as documented) at patient's floor/unit and/or counseling patient: Coding Level of Care Code 58030 SUB INP/OBS CARE 2/35MIN Diagnoses COVID-19 U07.1 Acute hypoxemic respiratory failure J96.01 Hyponatremia E87.1 Current smoker F17.200 Alcohol use disorder F10.90 Hypertension I10
[2023-12-29] MEDS: LORazepam 1 MG TAB PO SCH (20:53)
[2023-12-30] MEDS: dexAMETHasone 4 MG TAB PO SCH (08:57)
[2023-12-30] MEDS: AZITHROMYCIN 250 MG TAB PO SCH (08:58)
[2023-12-30] MEDS: CEFDINIR 300 MG CAP PO SCH (08:58)
--- NOTE | 2023-12-30 10:27 | XRay Report ---
XR chest 1V portable CLINICAL HISTORY: hypoxia, COVID COMPARISON STUDY: Chest radiograph December 27, 2023. Chest CT March 20, 2007. FINDINGS: Lung volumes are normal. Lungs are clear. There is no pneumothorax or pleural effusion. Car diac size is normal. Mediastinal contours are normal. There is no evidence for pulmonary edema. IMPRESSION: No acute cardiopulmonary findings. ACT 112: Negative or not required by law. Electronically signed by: Uri Monae M.D. 12/30/2023 10:26 AM
--- NOTE | 2023-12-30 11:22 | Hospitalist Progress Note ---
Date of Service December 30, 2023 Assessment & Plan (1) COVID-19: Plan: Presents with respiratory symptoms to include productive cough and shortness of breath, weakness, hypoxia. Chest x-ray consistent with peribronchial thickening and could be viral pneumonia Positive COVID-19. D-dimer negative on admission, VBG normal. Likely has underlying COPD but has not had PFTs or been prescribed inhalers in the past. Is a current smoker With acute respiratory failure with hypoxia requiring 3 L nasal cannula initially-then weaned to room on 12/28. On AM of 12/29 had acutely worsening hypoxemia with POx 79% on RA and required 8LNC to keep POx>90% CTA CHest ordered urgently which was neg for PE but showed bilateral upper lobe groundglass opacities c/w viral PNA and pulm nodules Likely worsening hypoxemia from mucus plugging Wheezing improved. Needs ongoing pulm toilet dcd Remdesivir-she received 3 doses but IV was too painful and will not be replaced at pt's request Continue dexamethasone 6mg po daily to finish out a 10 day course Continue flutter valve and incentive spirometer Continue Tessalon Perles 200 mg p.o. 3 times daily scheduled and continue Robitussin DM as needed Continue supportive care (2) Acute hypoxemic respiratory failure: Plan: With pneumonia on chest x-ray and also on CTA Chest. CTA Chest neg for PE. This PNA could be a superinfection/bacterial infection With worsening hypoxemia as noted above likely from mucus plugging-requiring 8LNC this AM after being weaned to room air previously Initially received Rocephin and azithromycin IV for PNA and now changed to po ce fdinir and po azithro to finish out 7 days and 5 days, respectively Sputum culture-moderate normal mikayla-final Follow Chest CT in 3 months to f/u on nodules and to assess for resolution of PNA Continue supplemental O2 as needed to keep pulse ox greater than 90% Check 2 step walk test prior to discharge Recommend PFTs as outpt and maintenance inhaler-will prescribe Spiriva on discharge (3) Pulmonary nodule: Plan: f/u chest CT in 3 months (4) Hyponatremia: Plan: Sodium 120 on admission and now up to 135 after receiving normal saline and fluid restricting It is not clear if this is acute or chronic hyponatremia. Likely related to beer Potomania Continue fluid restriction but can loosen to 1800mL as she tends to drink a lot of fluid Encouraged EtOH cessation (5) Current smoker: Plan: Counseled on smoking cessation Nicotine patch transdermal ordered (6) Alcohol use disorder: Plan: Patient admits to drinking anywhere from 3-12 beers per day but says her last drink was on Saturday 12/23 and that she has no history of alcohol withdrawal She was mildly tachycardic here but that could also be from bronchodilators and steroid therapy in the setting of hypoxia and illness-now resolved With hyponatremia as noted above which is now resolved Recommend cutting down on alcohol use or abstinence Does not seem likely that she will have withdrawal at this point as she is already 5 days out from her last drink Continue thiamine and folic acid (7) Hypertension: Plan: Blood pressures are mildly elevated likely secondary to steroid therapy Continue home lisinopril IV hydralazine prn Plan Hyperlipidemia-it appears she is no longer on [id number]-nyloth-[id number] with PCP Generalized anxiety disorder-continue BuSpar 15 Mg p.o. twice daily, add lorazepam 1mg hs for insomnia while in hospital DVT prophylaxis-Lovenox SQ Disposition-continued stay on med/surg and dc to home once hypoxemia improved Admission and Anticipated Discharge Date Admission Date: December 27, 2023 Subjective Pt feeling very tight in the chest today like she just can't get a deep breath. Feels very congested in the chest.Is using flutter valve but having a hard time getting mucus up. POx was 79% on room air this AM after being weaned to room air yesterday afternoon. SHe was on 8LNC when I saw her. Otherwise no other concerns. Physical Exam Constitutional: WD/WN, vitals as above Neck: trachea midline, no thyromegaly Respiratory: normal respiratory effort; no cough Auscultation: no crackles, no rhonchi and no wheezes Cardiovascular: RRR, no murmur, no edema Chest (Breasts): Chest: normal inspection of chest Gastrointestinal (Abdomen): normal bowel sounds, soft, nontender, no hepatosplenomegaly Musculoskeletal: Extremities: extremities normal to inspection; no cyanosis and no clubbing Skin: no rashes, warm and dry Neurologic: moves all extremities and awake; no focal motor deficits Psychiatric: A+Ox3, euthymic affect Lymphatic: no lymphedema Results & Data Results & Data Vital Signs (Past 12 Hours) Vital Signs Temp Pulse Resp BP BP Pulse Ox O2 Del Method 12/30/23 09:28 82 167/93 H 12/30/23 09:05 167/106 H 12/30/23 07:48 36.7 C 89 18 163/101 H 93 Nasal Cannula 12/30/23 07:15 Nasal Cannula 12/30/23 07:01 111 H 19 81 L Room Air O2 Flow Rate 12/30/23 09:28 12/30/23 09:05 12/30/23 07:48 1 12/30/23 07:15 1 12/30/23 07:01 Laboratory Results no labs Diagnostic Findings Chest X-Ray 12/30/23 08:46 XR chest 1V portable CLINICAL HISTORY: hypoxia, COVID COMPARISON STUDY: Chest radiograph December 27, 2023. Chest CT March 20, 2007. FINDINGS: Lung volumes are normal. Lungs are clear. There is no pneumothorax or pleural effusion. Cardiac size is normal. Mediastinal contours are normal. There is no evidence for pulmonary edema. IMPRESSION: No acute cardiopulmonary findings. ACT 112: Negative or not required by law. Electronically signed by: Uri Monae M.D. 12/30/2023 10:26 AM Chest CTA 12/30/23 11:20 CT ANGIOGRAPHY OF THE CHEST, PULMONARY EMBOLUS PROTOCOL CLINICAL HISTORY: r/o PE, COVID, worsening hypoxemia COMPARISON STUDY: Chest CT March 20, 2017. Chest radiograph performed earlier today. TECHNIQUE: Following IV administration of 118 mL of Optiray, helical axial images of the chest were obtained utilizing the pulmonary embolus protocol. Maximal intensity projections and sagittal and coronal reformats were viewed on an independent 3D workstation. IV contrast was administered without complication. Automated exposure control was utilized for the study. A dose lowering technique was utilized adhering to the principles of ALARA. CT DOSE: 353.56 mGy.cm FINDINGS: No pulmonary emboli are identified. There is no thoracic aortic dissection. Size of the heart is normal. There is no pericardial effusion. There is no pneumothorax or pleural effusion. Moderate emphysema is noted. A 4.1 x 1.7 cm subpleural left upper lobe groundglass opacity on image 206 of 253 is noted. There are smaller additional biapical groundglass opacities. A 5 mm right lower lobe nodular density on image 123 of 253 is present. Mild bronchial wall thickening is present. No central obstructing mass is noted. No cavitation. No fractures or suspicious lesions within the visualized bony thorax are present. Visualized portions of the upper abdomen are unremarkable. There is no thoracic lymphadenopathy. IMPRESSION: 1. No pulmonary emboli identified. 2. A few patchy bilateral upper lobe groundglass opacities which favor viral pne umonia. A follow-up chest CT in 3 months to ensure resolution is recommended. 3. Low suspicion 5 mm right lower lobe nodular density which can be assessed on follow-up CT. 4. Emphysema. ACT 112: Negative or not required by law. Electronically signed by: Uri Monae M.D. 12/30/2023 12:29 PM PG Care Time/CCT Total # of Minutes Spent Total Time Spent with Patient: Total time spent is greater than 50% in coordination of care (as documented) at patient's floor/unit and/or counseling patient: Coding Level of Care Code 74309 SUB INP/OBS CARE 2/35MIN Diagnoses COVID-19 U07.1 Acute hypoxemic respiratory failure J96.01 Pulmonary nodule R91.1 Hyponatremia E87.1 Current smoker F17.200 Alcohol use disorder F10.90 Hypertension I10
[2023-12-30] MEDS: OPTIRAY 320 125ml IV ONE (12:17)
--- NOTE | 2023-12-30 12:30 | CT Scan Report ---
CT ANGIOGRAPHY OF THE CHEST, PULMONARY EMBOLUS PROTOCOL CLINICAL HISTORY: r/o PE, COVID, worsening hypoxemia COMPARISON STUDY: Chest CT March 20, 2017. Chest radiograph performed earlier today. TECHNIQUE: Following IV administration of 118 mL of Optiray, helical axial images of the chest were o btained utilizing the pulmonary embolus protocol. Maximal intensity projections and sagittal and cor onal reformats were viewed on an independent 3D workstation. IV contrast was administered without co mplication. Automated exposure control was utilized for the study. A dose lowering technique was ut ilized adhering to the principles of ALARA. CT DOSE: 353.56 mGy.cm FINDINGS: No pulmonary emboli are identified. There is no thoracic aortic dissection. Size of the he art is normal. There is no pericardial effusion. There is no pneumothorax or pleural effusion. Modera te emphysema is noted. A 4.1 x 1.7 cm subpleural left upper lobe groundglass opacity on image 206 of 253 is noted. There are smaller additional biapical groundglass opacities. A 5 mm right lower lobe no dular density on image 123 of 253 is present. Mild bronchial wall thickening is present. No central o bstructing mass is noted. No cavitation. No fractures or suspicious lesions within the visualized bon y thorax are present. Visualized portions of the upper abdomen are unremarkable. There is no thoracic lymphadenopathy. IMPRESSION: 1. No pulmonary emboli identified. 2. A few patchy bilateral upper lobe groundglass opacities which favor viral pneumonia. A follow-up c hest CT in 3 months to ensure resolution is recommended. 3. Low suspicion 5 mm right lower lobe nodular density which can be assessed on follow-up CT. 4. Emphysema. ACT 112: Negative or not required by law. Electronically signed by: Uri Monae M.D. 12/30/2023 12:29 PM
[2023-12-31 06:33] LABS: BUN Creatinine Ratio 24.5 (10-20); Calcium 8.8 mg/dl (8.6-10.3); Creatinine Clr Calc Pharmacy 104.6 ml/min; Est GFR (African American) 130.7 ml/min; Est GFR (Non-African American) 112.8 ml/min
--- NOTE | 2023-12-31 13:23 | Discharge Summary ---
Discharge Summary Date of Service December 31, 2023 Principal Dx & Hospital Course #1 = Principal Diagnosis (1) COVID-19: Presents with respiratory symptoms to include productive cough and shortness of breath, weakness, hypoxia. Chest x-ray consistent with peribronchial thickening and consistent with viral pneumonia Positive for COVID-19. D-dimer negative on admission, VBG normal. Likely has underlying COPD but has not had PFTs or been prescribed inhalers in the past. Is a current smoker With acute respiratory failure with hypoxia requiring 3 L nasal cannula initially-then weaned to room on 12/28. On AM of 12/29 had acutely worsening hypoxemia with POx 79% on RA and required 8LNC to keep POx>90% CTA CHest ordered urgently which was neg for PE but showed bilateral upper lobe groundglass opacities c/w viral PNA and pulm nodules Likely worsening hypoxemia from mucus plugging. This improved with pulmonary toilet to include flutter valve and bronchodilators and she was requiring 2 L at rest and 3 L with exertion on the day of discharge She received 3 doses of Remdesivir but then it was discontinued as her IV was too painful and was not replaced at pt's request She received IV steroids and then was converted to dexamethasone 6mg po daily to finish out a 10 day course, however her pharmacy was out of this medicine so she was converted to prednisone 40 mg daily x 5 more days after discharge She was treated with IV Rocephin and received 5 doses of p.o. azithromycin and then converted to p.o. antibiotics in the form of Augmentin 1 tab p.o. twice daily x 2 more days after discharge for secondary bacterial pneumonia Continue flutter valve and incentive spirometer after discharge Continue Tessalon Perles 200 mg p.o. 3 times daily as needed for cough Prescribed her albuterol nebulizers to use 3-4 times a day after discharge Encouraged ongoing smoking cessation She was given portable oxygen to use 2 LNC at rest and 3 LNC with exertion at home (2) Acute hypoxemic respiratory failure: Secondary to COVID and with pneumonia on chest x-ray and also on CTA Chest. CTA Chest neg for PE. Treatment as above for pneumonia and COVID Follow Chest CT in 3 months to f/u on nodules and to assess for resolution of PN A Recommend PFTs as outpt and prescribed albuterol nebulizers but would likely benefit from maintenance inhaled corticosteroid/LABA (3) Pulmonary nodule: f/u chest CT in 3 months (4) Hyponatremia: Sodium 120 on admission and returned to normal after receiving normal saline and fluid restricting It is not clear if this is acute or chronic hyponatremia. Likely related to beer Potomania Continue fluid restriction at 1800mL Encouraged EtOH cessation (5) Current smoker: Counseled on smoking cessation Nicotine patch transdermal ordered Advised especially not to smoke or light flames around oxygen (6) Alcohol use disorder: Patient admits to drinking anywhere from 3-12 beers per day but says her last drink was on Saturday 12/23 and that she has no history of alcohol withdrawal She was mildly tachycardic here but that could also be from bronchodilators and steroid therapy in the setting of hypoxia and illness-now resolved With hyponatremia as noted above which is now resolved Recommend cutting down on alcohol use or abstinence She had no withdrawal from alcohol while she was here Continue thiamine and folic acid on discharge (7) Hypertension: Blood pressures were mildly elevated likely secondary to steroid therapy Continue home lisinopril Follow-up as an outpatient Plan Hyperlipidemia-it appears she is no longer on [id number] with PCP Generalized anxiety disorder-continue BuSpar 15 Mg p.o. twice daily, treated with lorazepam 1mg hs for insomnia while in hospital DVT prophylaxis-Lovenox SQ Disposition-stable for discharge to home with home oxygen Notes For Next Care Provider Sent home on oxygen-may be able to wean off of this over the next few weeks Needs follow-up chest CT in 3 months Recommend formal PFTs and maintenance inhalers/treatment for COPD Medication Changes From Visit See medication list below Admission HPI Per Admitting Provider This is a 53-year-old female who has a approximately 4 to 5-day history of increasing cough and shortness of breath. She has had productive sputum that is been [place] to yellow in color. She denies having a fever at home. She took a home COVID test over the last 2 to 3 days which was negative. Due to her increasing shortness of breath and cough he presented to the ER for further evaluate treatment. In the emergency department she is found to be hypoxic as low as 89% on room air. She had a chest x-ray concerning for possible evolving pneumonia-possible viral pneumonia. Laboratory studies including a CBC were unremarkable. However electrolytes showed a sodium level of 120. The patient received multiple nebulizer treatments in the ER. She was she is not an 25 mg of IV Solu-Medrol. She received a bolus of normal saline. We are called admit the patient for further evaluation and treatment. We have ordered a stat D-dimer given the hypoxemia. This is pending. COVID test was ordered but not collected or resulted prior to us being requested for admission. This is still pending. Event admit the patient. Will start her on Rocephin and azithromycin as well as steroids and nebulizer/pulmonary toilet. Started on gentle saline. Do BMP every 4 hours. Await COVID testing and D-dimer. If positive we will make further recommendations. We have also ordered a sputum culture. Discharge Exam Constitutional WD/WN, vitals as above Neck trachea midline, no thyromegaly Respiratory normal respiratory effort; no cough Auscultation: + rhonchi (A few in bilateral upper lung marie) and + wheezes (A few scattered expiratory wheezes); no crackles Cardiovascular RRR, no murmur, no edema Chest (Breasts) Chest: normal inspection of chest Gastrointestinal (Abdomen) normal bowel sounds, soft, nontender, no hepatosplenomegaly Musculoskeletal Extremities: extremities normal to inspection; no cyanosis and no clubbing Skin no rashes, warm and dry Neurologic moves all extremities and awake; no focal motor deficits Psychiatric A+Ox3, euthymic affect Lymphatic no lymphedema Discharge Plan Discharge Items Patient Disposition: Home - Self-Care Reason For Visit: COPD EXACERBATION Discharge Diagnosis: COVID-19, Pneumonia Acute respiratory failure with hypoxemia COPD exacerbation Hyponatremia Condition on Discharge: Good Activity: As commented below Lifting: Gradually increase as tolerated Bathing: No limitations Non-emergency contact: Primary Care Provider Call non-emergency contact if: you have any medication questions and your symptoms worsen Follow-up/Referrals: Octavio Hummel DO [Primary Care Provider] - (Follow up within 1-2 weeks) Diet: Regular Addtl Attending Provider Instructions: You were admitted with low oxygen levels and difficulty breathing due to COVID- 19 with pneumonia and wheezing from COPD. You were treated with antibiotics, steroids, and oxygen and had improvement. You are still in need of supplemental oxygen and should wear 2L via nasal cannula at all times at rest and then increase it to 3L with any exertion. Your doctor can tell you when you can stop using the oxygen. You had a nodule on your chest CT scan as well as the pneumonia and it is recommended that you have a follow up CT scan of your chest in 3 months to ensure this is resolved and not growing in size. Please finish out 5 more days of the steroid called prednisone, 2 more days of the antibiotic called Augmentin, and use the albuterol nebs 3-4 times per day for wheezing. You can continue taking the Tessalon perles for cough and use the flutter valve to get out mucus. It is VERY IMPORTANT that you continue to NOT SMOKE, especially around your oxygen as oxygen can catch on fire. Your sodium levels were also quite low and this is secondary to drinking excessive amounts of beer and water. It is important to reduce your alcohol and water intake to no more than 60 ounces a day. Pending Studies at Discharge: No Stand-Alone Forms: [facility], Smoking Cessation Medications and DC Order Prescriptions: New albuterol sulfate 2.5 mg /3 mL (0.083 %) Solution For Nebulization 2.5 mg NEB Q6H Qty: 90 0RF nicotine 7 mg/24 hr Patch 24 Hour 1 patch transdermal QAM Qty: 14 0RF Rx Instructions: OTC benzonatate 200 mg capsule 200 mg PO TID PRN (Reason: cough) Qty: 30 0RF thiamine HCl (vitamin B1) 100 mg Tablet 100 mg PO QAM Qty: 30 0RF folic acid 1 mg Tablet 1 mg PO QAM Qty: 30 0RF amoxicillin-pot clavulanate 875-125 mg tablet 1 tab PO BID Qty: 4 0RF prednisone 20 mg tablet 40 mg PO DAILY 5 Days Qty: 10 0RF Continued lisinopril 40 mg tablet 40 mg PO DAILY Qty: 90 3RF buspirone 15 mg tablet 15 mg PO BID Qty: 180 3RF albuterol sulfate 90 mcg/actuation HFA aerosol inhaler 1 - 2 inh inhalation QID Qty: 18 3RF Discharge Orders: Discharge Order (Routine); Ordered 12/31/23 Ordered By: Hayley Hidalgo/Other Patient Handouts: 2019 Novel Coronavirus Admission Data Admit Date/Time: 12/27/23 13:34 Attending Provider: Hayley Carias Admit Provider: Braden Hodgson Primary Care Provider: Octavio Hummel Other Providers: Braden Hodgson Other Interventions: Discharge Summary Assessment (RN) Last Done: 12/31/23 13:40 Hospital Stay Data Consultations 12/27/23 13:22 ED Decision to Admit Stat Diagnostic Imagining Performed 12/30/23 11:20 CT angio chest PE protocol Urgent Pending Results Patient Have Any Pending Studies at Discharge: No Discharge Instructions Given to Patient (Per Discharging Provider) You were admitted with low oxygen levels and difficulty breathing due to COVID- 19 with pneumonia and wheezing from COPD. You were treated with antibiotics, steroids, and oxygen and had improvement. You are still in need of supplemental oxygen and should wear 2L via nasal cannula at all times at rest and then increase it to 3L with any exertion. Your doctor can tell you when you can stop using the oxygen. You had a nodule on your chest CT scan as well as the pneumonia and it is r ecommended that you have a follow up CT scan of your chest in 3 months to ensure this is resolved and not growing in size. Please finish out 5 more days of the steroid called prednisone, 2 more days of the antibiotic called Augmentin, and use the albuterol nebs 3-4 times per day for wheezing. You can continue taking the Tessalon perles for cough and use the flutter valve to get out mucus. It is VERY IMPORTANT that you continue to NOT SMOKE, especially around your oxygen as oxygen can catch on fire. Your sodium levels were also quite low and this is secondary to drinking excessi ve amounts of beer and water. It is important to reduce your alcohol and water intake to no more than 60 ounces a day. Total Time Total Time Spent Total Time Spent (In Minutes): 45 minutes Total Time Includes: Examination of the Patient, Discharge Planning and Medication Reconciliation Coding Level of Care Code 38136 INP/OBS DISCH >30 MIN Diagnoses COVID-19 U07.1 Acute hypoxemic respiratory failure J96.01 Pulmonary nodule R91.1 Hyponatremia E87.1 Current smoker F17.200 Alcohol use disorder F10.90 Hypertension I10
[2023-12-31 15:02] VITALS: BP 175/97; PULSE 76; RESP 16; TEMP 98.1; O2SAT 95
== END 2023-12-31 15:38 | disposition home or self-care (01) | DRG 177 ==
LOC: ED 11:44 → EDINP 13:34 → SUATTDRO 13:34 → 2W 17:06 → 3E 12-29 20:29